=== PATIENT | male | born 1985 | race Two or more races ===

== ENCOUNTER 2019-07-30 19:00 | Emergency (ER) | payer OTHER ==
[2019-07-30 19:09] VITALS: BP 104/62; PULSE 57; TEMP 98; BMI 31.0
--- NOTE | 2019-07-31 01:34 | PDOC ---
Documentation entered by Roberta Urbano SCRIBE, acting as scribe for Kellen Juarez MD. Kellen Juarez MD: This documentation has been prepared by the scribe, Roberta Urbano SCRIBE, under my direction and personally reviewed by me in its entirety. I confirm that the documentation accurately reflects all work, treatment, procedures, and medical decision making performed by me. History of Present Illness - General Chief Complaint: Injury Stated Complaint: RIGHT 4TH FINGE INJURY History Source: Patient Exam Limitations: No Limitations - History of Present Illness Initial Comments: 07/30/19 21:08 The patient is a 37-year-old male with no reported past medical history who presents to the emergency department with right 4th finger injuring. The patient reports 2 days ago, he was playing volleyball when he injured his right finger. The patient reports swelling to the finger, with difficulty making a fist. The patient reports applying ice and taking Advil without relief. Past History - Past Medical History Allergies/Adverse Reactions: Allergies Allergy/AdvReac Type Severity Reaction Status Date / Time No Known Allergies Allergy Verified 07/30/19 19:03 Home Medications: Ambulatory Orders NK [No Known Home Medication] 07/30/19 COPD: No Other medical history: pt denies - Psycho Social/Smoking Cessation Hx Smoking History: Never smoked Have you smoked in the past 12 months: No Information on smoking cessation initiated: No Hx Alcohol Use: No Review of Systems - Review of Systems Able to Perform ROS?: Yes Comments:: 07/30/19 21:08 CONSTITUTIONAL: Pt denies Fever, Chills, weakness. HEENT: denies vision changes, sore throat RESPIRATORY: Denies cough, sob, hemoptysis CARDIAC: denies chest pain, palpitations, lightheadedness, leg swelling ABD/GI: denies abd pain, nausea, vomiting, blood per rectum, melena, diarrhea : denies dysuria, frequency, discharge MSK: +right 4th finger injury w/ swelling. denies back pain, other joint swelling SKIN: denies bruising, erythema, rash NEUROLOGICAL: denies headache, numbness, focal weakness, tingling, ataxia, weakness HEMATOLOGICAL: denies anemia, easy bruising, easy bleeding *Physical Exam - Vital Signs Last Vital Signs Temp Pulse Resp BP Pulse Ox 98 F 57 L 18 104/62 99 07/30/19 19:00 07/30/19 19:00 07/30/19 19:00 07/30/19 19:00 07/30/19 19:00 - Physical Exam Comments: 07/30/19 21:08 GENERAL: The patient is awake, alert, and fully oriented, in no acute distress EXTREMITIES: Moderate edema of the right 4th finger, with marked edema and tenderness to the PIP joint. No ligamentous instability of the PIP joint, no open wound, Motor and sensory function intact. No nail damage, no other finger or hand injury present. Good capillary refill. ED Treatment Course - RADIOLOGY Radiology Studies Ordered: Category Date Time Status FINGER(S) RIGHT [RAD] Stat Radiology 07/30/19 19:44 Completed Medical Decision Making - Medical Decision Making As noted above, this 34 y.o. man presents with swollen ,painful R ring finger, 2 days after hyperextension injury sustained while playing volleyball. Exam as noted. Xray performed and interpreted by Dr Oliveira of the Radiology staff: no fx or dislocation Clinical presentation consistent with sprain of PIP joint: splint applied. The patient will be referrred to Drs. Dc/Ang Discharge - Discharge Information Clinical Impression/Diagnosis: Sprain of finger of right hand Qualifiers: Encounter type: initial encounter Finger: ring finger Sprain of finger site: interphalangeal joint Qualified Code(s): S63.634A - Sprain of interphalangeal joint of right ring finger, initial encounter Condition: Stable Disposition: HOME - Follow up/Referral Referrals: Sharyn Arias NP [Primary Care Provider] - Jcarlos Dc MD [Staff Physician] - - Patient Discharge Instructions Patient Printed Discharge Instructions: Finger Sprain Additional Instructions: keep splint in place until seen by hand surgeon(Dr Dc) Motrin/Aleve/Tylenol as needed call Dr Dc/Dr Fry office tomorrow to arrange followup within 1 week - Post Discharge Activity
== END 2019-07-30 21:07 | disposition home or self-care (01) ==
LOC: FER 19:00
PROC: 2W3JX1Z Immobilization of Right Finger using Splint (ICD-10-PCS; principal; 2019-07-30)
DX: S63.634A Sprain of interphalangeal joint of right ring finger, initial encounter (principal); X58.XXXA Exposure to other specified factors, initial encounter; Y93.68 Activity, volleyball (beach) (court); Y92.89 Other specified places as the place of occurrence of the external cause
CPT/HCPCS: 29130; 73140-TC-RT-FY; 99282-25